=== PATIENT | male | born 1965 | race Caucasian/White ===

== ENCOUNTER 2020-05-05 07:11 | Emergency (ER) | payer OTHER ==
[~2020-05-05] VITALS: Ht 180.3 cm; Wt 93.2 kg
[2020-05-05] MEDS ORDERED: IBUP-1114 PO (07:22)
[2020-05-05] MEDS ORDERED: FLUORESCEIN OPHTH 1 MG STRIP OS ONE (07:45)
[2020-05-05] MEDS ORDERED: TETRACAINE 0.5% OPHTH SOLN 4ML OS ONE (07:45)
[2020-05-05] MEDS ORDERED: OCUF0.25 OS (07:54)
[2020-05-05 08:29] VITALS: BP 138/86
== END 2020-05-05 08:30 | disposition home or self-care (01) ==
LOC: M ED 07:11
DX: S05.02XA Injury of conjunctiva and corneal abrasion without foreign body, left eye, initial encounter (principal); W22.8XXA Striking against or struck by other objects, initial encounter; Y92.9 Unspecified place or not applicable; Y93.9 Activity, unspecified; Y99.9 Unspecified external cause status; F17.200 Nicotine dependence, unspecified, uncomplicated